=== PATIENT | female | born 1970 | race Caucasian/White ===

== ENCOUNTER 2020-05-02 06:08 | Day surgery (SDC) | payer BC, SELFPAY ==
--- NOTE | 2020-04-29 12:21 | PCM.HP.OB ---
- Problem List (1) DUB (dysfunctional uterine bleeding) Status: Acute (2) Uterine polyp Status: Acute History Date of Admission: 05/02/20 History of this : This is a [address] year-old call Dr. Anya Boudreaux for abnormal uterine bleeding. She had a pelvic ultrasound that shows a polyp present. Medical History: Medical History (Last Updated 04/29/20 @ 12:[address] Brissa Damian DO) Thyroid nodule E04.1 Allergies No Known Allergies Allergy (Verified 04/29/20 08:11) Home Medications: Home Medications Levothyroxine [Synthroid] 50 mcg PO DAILY 04/29/20 Metformin HCl 04/29/20 Sertraline HCl [Zoloft] 100 mg PO DAILY 04/29/20 Trimethoprim 100 mg PO BID 04/29/20 Smoking Status: Never smoker History Past Pregnancies: Past Pregnancies Delivery Date Name GA/ Weeks Outcome Route Wt Sex Labor Length Anesthesia Delivery Location Provider FOB Review of Systems Constitutional: Denies: Chills, Fever Eyes: Denies: Blurred vision HEENT: Denies: Head Aches Cardiovascular: Denies: Chest Pain Respiratory: Denies: Cough Gastrointestinal: Denies: Abdominal Pain Genitourinary: Denies: Dysuria Musculoskeletal: Denies: Joint Pain Physical Exam General: Alert, No apparent distress HEENT: Atraumatic Cardiovascular: Regular rate Lungs: Clear to auscultation Abdomen: Soft, Non Tender, Non-Distended Extremities:: No edema Neurological: Neuro grossly intact Assessment/Plan All Active Problems (Last Updated 04/29/20 @ 12:[address] Brissa Damian DO) DUB (dysfunctional uterine bleeding) (Acute) Uterine polyp (Acute) This is a 50 year-old with dysfunctional uterine bleeding and ultrasound shows a polyp. Treatment options were discussed with the patient. After discussion of risks, benefits, alternatives to a hysteroscopy polypectomy and D&C the patient desires to proceed with surgery.
[2020-05-02] VITALS (9 sets, daily range): BP systolic 89–107; BP diastolic 54–70; PULSE 81–90; RESP 16–18; TEMP 36.4–37.4; O2SAT 100; BMI 22.3
[2020-05-02 06:51] LABS: Hematocrit 37.5 % (37-47); Mean Corpuscular Hgb 29.1 pg (27.0-32.0); Platelet Count 189 K/mm3 (150-450); RBC Distribution Width CV 12.5 % (11.6-14.6); RBC Distribution Width SD 41.1 fl (35.1-43.9); Red Blood Count 4.12 M/mm3 (4.2-5.4); White Blood Count 4.3 K/mm3 (4.4-11.0)
[2020-05-02 06:59] LABS: Internal QC Validated? YES +Cl - CLEAR BKGD; Pregnancy, Urine Negative Negative
[2020-05-02] MEDS: Lactated Ringers 1,000 ML 100 ML IV (07:07)
[2020-05-02] MEDS: Lubricating Jelly 60 GM Tube 30 GM TOPICAL (07:57)
--- NOTE | 2020-05-02 08:00 | EMB_PTH ---
PATIENT: ENID SAMUELS LOC: [facility] [place] U#:[id number] AGE/SX: 50/F ROOM: RE05/02/[address]: Dr. Brissa Damian, DO : 1970 BED: DIS: 05/02/2020 SPEC #: [id number] RECD: 05/02/20 09:39 STATUS: SAVAGE CARRILLOXena #: [id number] TRACIE: 05/02/20 08:[address]: Brissa Damian DEPT: SURGICAL PATHOLOGY RECD BY: Clarie Verduzco Tissues: Endometrium, NOS Procedures: Surgery Specimen Level IV HEADER OPERATION: Hysteroscopy, D & C Symphion, polypectomy PRE-OP DIAGNOSIS: Dysfunctional uterine bleeding; uterine polyp TISSUE SUBMITTED: Endometrial curettings, polyps MICROSCOPIC DIAGNOSIS Endometrial curettings and polyp: Secretory endometrium. A few fragments of endometrial tissue with proliferative endometrium and hyalinization, may represent fragments of polyp. See comment. KEATON:rachell 05/03/20 COMMENT The specimen predominantly consists of secretory endometrium. MICROSCOPIC DESCRIPTION Slides are reviewed. GROSS DESCRIPTION Received in fixative is one container labeled with the patient's name and designated endometrial curettings and polyp. The specimen consists of multiple fragments of oswald-pink to hemorrhagic soft tissue mixed with blood clot that in aggregate measure 5 x 3 x 0.6 cm. The entire specimen is submitted in four cassettes. / SJ:rachell 05/02/20 TC:5 CPT: 03161
--- NOTE | 2020-05-02 08:09 | DCINST_ITS ---
Discharge Diet: No Restrictions Discharge Activity: May Shower May resume sexual activity in: 1-2 weeks Weight Bearing Status: Weight bearing as tolerated Lifting Restrictions: No restrictions Call your doctor if you observe: Fever of 101 or Higher, Inability to urinate, Inability to have a bowel movement, Using more than one pad per hour, Shortness of breath, Dizziness, Fainting spells, Chest pain, Increased palpitations (irregular heartbeat), Calf discomfort, Uncontrolled pain Allergies/Adverse Reactions: Allergies No Known Allergies Allergy (Verified 05/02/20 06:50) Medications to take at Discharge Levothyroxine [Synthroid] 50 mcg PO DAILY 04/29/20 Metformin HCl 04/29/20 Sertraline HCl [Zoloft] 100 mg PO DAILY 04/29/20 Trimethoprim 100 mg PO BID 04/29/20 Primary Care Physician: HERON JAIMES [Other] Test Results: Test results from this visit will be discussed in further detail at your follow- up appointment, if applicable. Please Follow Up With: Brissa Damian DO When: 1-2 weeks
--- NOTE | 2020-05-02 09:13 | PCM.OPRPT ---
Problem List (1) DUB (dysfunctional uterine bleeding) Status: Acute (2) Uterine polyp Status: Acute Report of Operation Date of Procedure: 05/02/20 Pre-Operative Diagnosis: DUB, uterine polyp Post-Operative Diagnosis: As above Surgery/Procedure Performed:: Hysteroscopy, polypectomy, D&C Description of Surgical Findings:: There was one large endocervical polyp, and multiple polyps present in the uterine cavity. Bilateral tubal ostia were visualized. The endometrium was thick and fluffy in appearance. Type of Anesthesia:: MAC Special Medications: None Specimen's removed: Polyps and endometrial curettings Drains: None Estimated Blood Loss (mL): < 10 cc Fluids Replaced: Fluid defecit was 350 cc Description of Procedure: The patient was taken to the operating room where MAC anesthesia was found to be adequate. She was prepped and draped in the dorsal lithotomy position using yellowfin stirrups. A weighted speculum was placed in the vagina and the cervix was exposed. A single-tooth tenaculum was placed on the anterior lip of the cervix. The cervix was serially dilated to accommodate the Symphion hysteroscope. The hysteroscope was advanced into the cervical canal and a large endocervical polyp was noted. Hysteroscope was then advanced past the large polyp and uterine cavity was noted to be filled with multiple polyps. The endocervical polyp was first resected using the Symphion device to allow for better visualization. The cervix was soft, and after resecting the cervical polyp the canal was noted to be dilated. The normal saline that was being used for distension was then coming from the uterine cavity, and back out into the vagina. A stitch was placed at the 6 o'clock position in the cervix to narrow the cervical canal to allow for better visualization. A ring forcep was placed at the 12 o'clock position to narrow the cervical canal. The polyps within the uterine cavity were then resected using the Symphion device. Bilateral tubal ostia were visualized. The endometrium was also thick and fluffy appearing in addition to the several polyps that were present. The hysteroscope was then removed. A sharp curettage was performed. The polyps in endometrial curettings were sent to pathology for review. Her meds were removed from the vagina. Bleeding was hemostatic. Sponge instrument counts were correct. A vaginal sweep was performed. The patient was taken to the recovery room in stable condition. Grafts/Implants Used: None - Complications None - Admit VTE Documentation VTE Present on Admission: No VTE Mechan Device Prophylaxis: SCD's
[2020-05-02] MEDS: Ibuprofen 400 MG Tablet 800 MG PO (10:35)
--- NOTE | 2020-05-02 15:08 | HP.PCM_ITS ---
- Problem List (1) DUB (dysfunctional uterine bleeding) Status: Acute (2) Uterine polyp Status: Acute History and Physical Date of Admission: 05/02/20 DATE OF SERVICE: May 01, 2020 ? PROBLEM:?DUB, polyp ? DIAGNOSIS:?DUB, polyp ? PAST SURGICAL HISTORY:? PAST SURGICAL HISTORY PAST SURGICAL HISTORY Procedure Laterality Date ? COLONOSCOPY ? ? ? TONSILLECTOMY HX ? ? ? PAST MEDICAL HISTORY:? w PAST MEDICAL HISTORY PAST MEDICAL HISTORY Diagnosis Date ? Fibroid ? ? Thyroid nodule ? ? SUBJECTIVE:?DUB ? SOCIAL HISTORY:? SOCIAL HISTORY Social History ? Tobacco Use ? Smoking status: Never Smoker ? Smokeless tobacco: Never Used Substance Use Topics ? Alcohol use: Never ? ? Frequency: Never ? Drug use: Not on file ? Current Outpatient Medications on File Prior to Visit Medication Sig ? trimethoprim (PROLOPRIM) 100 mg tablet Take 100 mg by mouth once daily. ? buPROPion XL (WELLBUTRIN XL) 300 mg 24 hr tablet Take 300 mg by mouth once daily. ? sertraline (ZOLOFT) 100 mg tablet Take 2 tablets by mouth once daily. ? levothyroxine (SYNTHROID) 50 mcg tablet Take 50 mcg by mouth once daily. ? metFORMIN (GLUCOPHAGE) 500 mg tablet Take 500 mg by mouth daily with dinner. ? phentermine-topiramate ER (QSYMIA) 11.25-69 mg 24 Hr Capsule Take 1 capsule by mouth once daily. No current facility-administered medications on file prior to visit.? ALLERGIES ALLERGIES Allergen Reactions ? Seasonal Allergies ? Other: See Comments ? ? Sneezing ? OBJECTIVE: ? VITALS:? BP 90/56 ? Pulse 100 ? Resp 16 ? Ht 5' 3 (1.6 m) ? Wt 127 lb 12.8 oz (58 kg) ? LMP ?(LMP Unknown) ? BMI 22.64 kg/m? ? HEENT: ?Normocephalic, atraumatic, Mucus membranes moist without lesions. ? NECK: ???Soft and Supple. ?No adenopathy , thyromegaly or bruits. ? SKIN: No lesions. ? CHEST: Clear to auscultation. ?No wheezes or rales. ?Good air exchange. ? HEART: Regular rate and rhythm ?No S3 or S4. ?No gallops or rubs. ? BACK: Nontender with no CVA tenderness. ? ABDOMEN: Soft, non-tender, non-distended, no masses, no hepatosplenomegaly. ? LOWER EXTREMITIES: There was no pitting edema, no palpable cords and no skin changes. ? ? ASSESSMENT: ? PLAN:?Reviewed hysteroscopy, polypectomy, D&C. Discussed Mirena IUD - pt declines at this time.?The rationale for the proposed surgery was discussed in addition to risks, benefits, and alternatives. ?General pre- and post-operative care was reviewed. ?Questions were answered. ?After discussion, the patient indicated a desire to proceed with the planned surgery. ? Brissa Damian,?DO
--- NOTE | 2020-05-09 09:13 | SUR.PREOP ---
Pt was seen in pre-op. No changes noted and to proceed as planned.
== END 2020-05-02 10:59 | disposition home or self-care (01) ==
LOC: SDC 06:22 → AC 06:23
PROVIDERS: Anesthesiology; Referring Provider Obstetrics & Gynecology; Visit Provider Obstetrics & Gynecology
PROC: 0UB98ZZ Excision of Uterus, Via Natural or Artificial Opening Endoscopic (ICD-10-PCS; CPT 58558; principal; 2020-05-02 07:45)
DX: N93.8 Other specified abnormal uterine and vaginal bleeding (principal); N84.0 Polyp of corpus uteri; N84.1 Polyp of cervix uteri; F32.9 Major depressive disorder, single episode, unspecified; F41.9 Anxiety disorder, unspecified; Z11.59 Encounter for screening for other viral diseases; Z79.84 Long term (current) use of oral hypoglycemic drugs; Z79.899 Other long term (current) drug therapy
CPT/HCPCS: 00952; 58558; 81025; 85027; 86850; 86900; 86901; 87635; 88305; G2023; J7120; U0003

== ENCOUNTER 2021-03-06 06:07 | Day surgery (SDC) | payer BC, SELFPAY ==
[2020-05-02 06:51] VITALS: BMI 22.3
--- NOTE | 2021-03-03 17:19 | PCM.HPOB.BLA ---
- Problem List (1) DUB (dysfunctional uterine bleeding) Status: Acute (2) Uterine polyp Status: Acute History and Physical Date of Admission: 03/06/21 DATE OF SERVICE: March 05, 2021 ? PROBLEM:?menorrhagia, uterine polyp ? DIAGNOSIS:?menorrhagia, uterine polyp ? PAST SURGICAL HISTORY:? PAST SURGICAL HISTORYExpand by Default PAST SURGICAL HISTORY Procedure Laterality Date ? COLONOSCOPY ? ? ? HYSTEROSCOPY ? 04/2020 ? polypectomy D&C ? TONSILLECTOMY HX ? ? ? PAST MEDICAL HISTORY:? PAST MEDICAL HISTORYExpand by Default PAST MEDICAL HISTORY Diagnosis Date ? Fibroid ? ? Thyroid nodule ? ? SUBJECTIVE:?Heavy bleeding ? SOCIAL HISTORY:? SOCIAL HISTORYExpand by Default Social History ? Tobacco Use ? Smoking status: Never Smoker ? Smokeless tobacco: Never Used Vaping Use ? Vaping Use: Never used Substance Use Topics ? Alcohol use: Never ? Drug use: Not on file ? ? Allergies: ?Seasonal Allergies ?Other: See Comments ??Comment:Sneezing ? Current Outpatient Medications on File Prior to Visit Medication Sig ? ARIPiprazole (ABILIFY) 2 mg tablet Take 2 mg by mouth daily at bedtime. Taking 1/2 of a pill ? trimethoprim (PROLOPRIM) 100 mg tablet Take 1 tablet by mouth once daily. ? busPIRone (BUSPAR) 10 mg tablet Take 10 mg by mouth three times daily. ? sertraline (ZOLOFT) 100 mg tablet Take 2 tablets by mouth once daily. ? levothyroxine (SYNTHROID) 50 mcg tablet Take 50 mcg by mouth once daily. ? phentermine-topiramate ER (QSYMIA) 11.25-69 mg 24 Hr Capsule Take 1 capsule by mouth once daily. No current facility-administered medications on file prior to visit. ? OBJECTIVE: ? VITALS: BP 106/60 ? Pulse 100 ? Resp 16 ? Ht 5' 3 (1.6 m) ? Wt 131 lb (59.4 kg) ? LMP 01/09/2021 ? BMI 23.21 kg/m? ? HEENT: ?Normocephalic, atraumatic, Mucus membranes moist without lesions. ? NECK: ???Soft and Supple. ?No adenopathy , thyromegaly or bruits. ? SKIN: No lesions. ? CHEST: Clear to auscultation. ?No wheezes or rales. ?Good air exchange. ? HEART: Regular rate and rhythm ?No S3 or S4. ?No gallops or rubs. ? BACK: Nontender with no CVA tenderness. ? ABDOMEN: Soft, non-tender, non-distended, no masses, no hepatosplenomegaly. ? LOWER EXTREMITIES: There was no pitting edema, no palpable cords and no skin changes. ? ? ? ASSESSMENT:?Menorrhagia, uterine polyp ? PLAN:?She had a pelvic US showing a possible polyp and adenomyosis. She had an in office hysteroscopy showing polyp. Discussed hysteroscopy, polypectomy, D&C. Recommended Mirena IUD placement at time of surgery and she declines the IUD.?The rationale for the proposed surgery was discussed in addition to risks, benefits, and alternatives. ?General pre- and post-operative care was reviewed. ?Questions were answered. ?After discussion, the patient indicated a desire to proceed with the planned surgery. ? Brissa Damian,?DO
[2021-03-06] VITALS (8 sets, daily range): BP systolic 76–102; BP diastolic 59–79; PULSE 73–81; RESP 16–18; TEMP 36.4–36.7; O2SAT 95–100; BMI 23.1
--- NOTE | 2021-03-06 | EMB_PTH ---
PATIENT: ENID SAMUELS LOC: [facility] [place] U#:[id number] AGE/SX: 51/F ROOM: RE03/06/[address]: Dr. Brissa Damian, : 1970 BED: DIS: 03/06/2021 SPEC #: [id number] RECD: 03/06/21 11:10 STATUS: SAVAGE CECI #: [id number] TRACIE: 03/06/21 00:[address]: Brissa Damian DEPT: SURGICAL PATHOLOGY RECD BY: Kemar Rosa Tissues: Endometrium, NOS Procedures: Surgery Specimen Level IV HEADER OPERATION: Hysteroscopy, D & C Symphion, polypectomy PRE-OP DIAGNOSIS: Dysfunctional uterine bleeding; uterine polyp TISSUE SUBMITTED: Endometrial curettings and polyp MICROSCOPIC DIAGNOSIS Endometrial curettings and polyp: Predominantly proliferative endometrium with focal area of mildly disordered proliferative endometrium. Fragments of benign ecto- and endocervical mucosa. Fragments of myometrium with changes consistent with adenomyosis. See comment. KEATON:rachell 03/07/2021 COMMENT A few of the fragments has polypoid appearance and may represent fragments of polyp. Clinical correlation and appropriate follow up are necessary. Please make reference to previous specimen ([id number]) endometrial curettings and polyp with diagnosis of secretory endometrium and a few fragments of endometrial tissue with proliferative endometrium and hyalinization, may represent fragments of polyp. MICROSCOPIC DESCRIPTION Slides are reviewed. GROSS DESCRIPTION Received in fixative is one container labeled with the patient's name and designated endometrial curettings and polyp. The specimen consists of multiple fragments of oswald hemorrhagic soft tissue that in aggregate measure 7.5 x 3 x 0.3 cm. The specimen is totally submitted in three cassettes. / KEATON:rachell 03/06/21 TC:5 CPT: 30405
[2021-03-06 06:38] LABS: Internal QC Validated? YES +Cl - CLEAR BKGD
[2021-03-06 06:39] LABS: Pregnancy, Urine Negative Negative
[2021-03-06 06:53] LABS: Hematocrit 36.4 % (37-47); Hemoglobin 11.4 g/dL (12.0-15.0); Mean Corp Hgb Conc 31.3 g/dL (32-36); Mean Corpuscular Hgb 28.1 pg (27.0-32.0); Mean Corpuscular Volume 89.7 fL (81-99); Mean Platelet Vol. 11.2 fl (6.2-12.0); Platelet Count 199 K/mm3 (150-450); RBC Distribution Width CV 13.5 % (11.6-14.6); RBC Distribution Width SD 45.1 fl (35.1-43.9); Red Blood Count 4.06 M/mm3 (4.2-5.4); White Blood Count 3.3 K/mm3 (4.4-11.0)
[2021-03-06] MEDS: Lactated Ringers 1,000 ML 100 ML IV ×2 (06:56→08:22)
--- NOTE | 2021-03-06 07:27 | DCINST_ITS ---
Discharge Diet: No Restrictions Discharge Activity: May Drive - More than 24 hours after surgery May resume sexual activity in: 1 week - Nothing in the vagina for 1 week. No tampons, intercourse, hot tubs, tub baths, pools Weight Bearing Status: Weight bearing as tolerated Lifting Restrictions: None Call your doctor if you observe: Fever of 101 or Higher, Inability to urinate, Inability to have a bowel movement, Using more than one pad per hour, Shortness of breath, Dizziness, Fainting spells, Swelling in the ankles, Chest pain, Increased palpitations (irregular heartbeat), Calf discomfort, Uncontrolled pain Allergies/Adverse Reactions: Allergies No Known Allergies Allergy (Verified 03/06/21 06:45) Medications to take at Discharge Levothyroxine [Synthroid] 50 mcg PO DAILY 04/29/20 Sertraline HCl [Zoloft] 100 mg PO DAILY 04/29/20 Aripiprazole [Abilify] 5 mg PO QHS 02/27/21 Pro-Fe 180 mg PO BID 02/27/21 Buspirone HCl 20 mg PO TID 03/06/21 Orders to be completed after discharge: Type & Screen - PAT ONLY Time Frame: 03/06/21, Facility: [facility], Location: Laboratory Primary Care Physician: HERON JAIMES [Other] Test Results: Test results from this visit will be discussed in further detail at your follow- up appointment, if applicable. Please Follow Up With: Brissa Damian DO When: 1 week
--- NOTE | 2021-03-06 07:29 | PCM.OPRPT ---
Problem List (1) DUB (dysfunctional uterine bleeding) Status: Acute (2) Uterine polyp Status: Acute Report of Operation Date of Procedure: 03/06/21 Pre-Operative Diagnosis: Menorrhagia, uterine polyp Post-Operative Diagnosis: Menorrhagia, uterine polyp, adhesion within uterine cavity Surgery/Procedure Performed:: Hysteroscopy, polypectomy, resection of uterine adhesion, dilation and curettage Description of Surgical Findings:: One polyp noted. An adhesion was noted at the fundus of the uterus within the cavity. Otherwise normal appearing uterine cavity. Bilateral tubal ostia visualized Type of Anesthesia:: MAC Special Medications: None Specimen's removed: Endometrial curettings and polyp Drains: None Estimated Blood Loss (mL): < 50 cc Fluids Replaced: 400 cc fluid deficit Description of Procedure: Start time 0744 Stop time 0757 She was taken to the operating room where MAC anesthesia was found to be adequate. She was prepped and draped in dorsal lithotomy position using yellowfin stirrups. A weighted speculum was placed in the vagina to expose the cervix. The anterior lip of cervix was grasped with single-tooth tenaculum. The cervix was serially dilated to accommodate the Symphion hysteroscope. The Symphion hysteroscope was advanced to the fundus of the uterus in usual fashion and distended using normal saline as distention media. There was 1 polyp noted at the fundus of the uterus near the right cornua. There was an intrauterine adhesion noted at the fundus of the uterus. Using the resection device the polyp was removed, and adhesion was resected. A direct curettage was performed using the resection device. The hysteroscope was then removed. A sharp curettage was performed for a moderate amount of tissue. Endometrial curettings and polyp were sent to pathology for review. All instruments removed from the vagina. Bleeding was hemostatic. Instrument sponge counts were correct. Patient was taken recovery in stable condition. Grafts/Implants Used: None - Complications None - Admit VTE Documentation VTE Present on Admission: No VTE Mechan Device Prophylaxis: SCD's VTE Pharm Prophylaxis ordered?: No
== END 2021-03-06 08:52 | disposition home or self-care (01) ==
LOC: SDC 06:09 → AC 06:09
PROVIDERS: Anesthesiology; Referring Provider Obstetrics & Gynecology; Visit Provider Obstetrics & Gynecology
PROC: 0UB98ZZ Excision of Uterus, Via Natural or Artificial Opening Endoscopic (ICD-10-PCS; CPT 58558; principal; 2021-03-06 07:15)
DX: N92.0 Excessive and frequent menstruation with regular cycle (principal); N84.0 Polyp of corpus uteri; E04.1 Nontoxic single thyroid nodule; Z79.899 Other long term (current) drug therapy
CPT/HCPCS: 58558; 58560; 81025; 85027; 86850; 86900; 86901; 88305; J7120; J2405